=== PATIENT | male | born 1960 | race Caucasian/White ===

== ENCOUNTER 2017-10-26 10:37 | Emergency (ER) | payer OTHER ==
[~2017-10-26] VITALS: Ht 175.3 cm; Wt 88.6 kg
[~2017-10-26 10:37] MED LIST: ASPI-621 PO; ATOR80TA PO; CARV12.543 PO; CLOP75TA52 PO; IRBE300T16 PO; LISI-167 PO
[2017-10-26 10:39] VITALS: BP 150/73
[2017-10-26] MEDS ORDERED: ALBUTEROL/IPRATROPIUM 2.5MG/0.5MG, 3 ML ONE (11:43)
[2017-10-26] MEDS ORDERED: ACETAMINOPHEN 500 MG TABLET PO ONE (12:00)
[2017-10-26] MEDS ORDERED: ALBUTEROL/IPRATROPIUM 2.5MG/0.5MG, 3 ML NPPB ONE (12:00)
[2017-10-26] MEDS ORDERED: ACETAMINOPHEN 500 MG TABLET ONE (12:12)
[2017-10-26] MEDS ORDERED: HYDROcodone/APAP 7.5-325MG/15ML UDC PO ONE (12:23)
== END 2017-10-26 12:53 | disposition home or self-care (01) ==
LOC: ED 12:47
DX: J98.01 Acute bronchospasm (principal); B34.9 Viral infection, unspecified; E78.00 Pure hypercholesterolemia, unspecified; I10 Essential (primary) hypertension; Z87.891 Personal history of nicotine dependence; I25.2 Old myocardial infarction
CPT/HCPCS: 71010; 93005; 94640; 99284; J7512